=== PATIENT | female | born 1950 | race Caucasian/White ===

== ENCOUNTER 2018-08-11 13:48 | Inpatient (IN) | payer MEDICARE, OTHER ==
[~2018-08-11] VITALS: Ht 165.1 cm; Wt 128.8 kg
[~2018-08-11 13:48] MED LIST: SODIUM BICARBONATE SYR 50 MEQ/50 ML DISP.SYRIN IV ONE
--- NOTE | 2018-08-11 13:50 | NUR ---
JACK RA 39 FROM [facility]ARE [facility],"NOT ACTING RIGHT PER FAMILY FOR 3 DAYS", UNRESPONSIVE TO STIMULUS, HOOKED TO MONITOR, TO ER BED 1, AWAITING MD CHAVEZ
--- NOTE | 2018-08-11 14:10 | NUR ---
DR LUA AT BEDSIDE FOR EVAL.
[2018-08-11] MEDS ORDERED: ACETAMINOPHEN 650 MG/SUPP.RECT RC ONE ×2 (14:16→14:30)
--- NOTE | 2018-08-11 14:24 | NUR ---
PT TO RADIOLOGY FOR HEAD CT SCAN VIA [facility].
[2018-08-11 14:29] LABS: BASOPHILS % (AUTO) 0.1 % (0.0-2.0); EOSINOPHILS % (AUTO) 0.4 % (0.0-6.0); HEMATOCRIT 38 % (33-45); HEMOGLOBIN 12.4 g/dL (11.5-14.8); LYMPHOCYTES # (AUTO) 1.7 /CMM (0.8-4.8); LYMPHOCYTES % (AUTO) 8.5 % (20.0-44.0); MEAN CORPUSCULAR HGB CONC 33 g/dl (31.0-36.0); MEAN CORPUSCULAR VOLUME 97 fL (82-100); MONOCYTES # (AUTO) 3.6 /CMM (0.1-1.30); MONOCYTES % (AUTO) 17.9 % (2.0-12.0); NEUTROPHILS # (AUTO) 14.8 /CMM (1.8-8.9); NEUTROPHILS % (AUTO) 73.1 % (43.0-81.0); PLATELET COUNT (AUTO) 210 /CMM (150-450); RED BLOOD CELL COUNT(AUTO) 3.91 MIL/uL (4.0-5.2); WHITE BLOOD COUNT (AUTO) 20.2 K/uL (4.3-11.0)
[2018-08-11] MEDS ORDERED: ACETAMINOPHEN ES 500 MG TABLET PO ONE (14:30)
[2018-08-11] MEDS ORDERED: IV NS 0.9% 1,000 ML BAG IV ONE ×2 (14:30→15:00)
[2018-08-11 14:41] LABS: BILIRUBIN,URINE Negative (NEGATIVE); BLOOD, URINE Negative Ery/uL (NEGATIVE); COLOR,URINE Yellow (YELLOW); KETONES,URINE Negative (NEGATIVE); LEUKOCYTE ESTERASE ,URINE Negative (NEGATIVE); NITRITE, URINE Negative (NEGATIVE); PROTEIN,URINE Negative (NEGATIVE); UGLUCOSE Negative (NEGATIVE); UROBILINOGEN,URINE 0.2 EU/dL (0.2)
[2018-08-11 14:42] LABS: APPEARANCE,URINE CLEAR (CLEAR)
[2018-08-11 14:47] LABS: CALCIUM, SERUM 7.9 mg/dL (8.5-10.1); CREATININE 1.8 mg/dL (0.6-1.3); POTASSIUM 5.1 mmol/L (3.5-5.1)
[2018-08-11 14:51] LABS: ALBUMIN 2.8 g/dL (3.4-5.0); BILIRUBIN,DIRECT 0.6 mg/dL (0.0-0.2); BILIRUBIN,TOTAL 1.5 mg/dL (0.2-1.0); TOTAL PROTEIN, SERUM 5.9 g/dL (6.4-8.2)
[2018-08-11] MEDS ORDERED: PIPERACILLIN /TAZOBACTAM 3.375 G in IV D5W 50 ML IV ONE (15:00)
[2018-08-11 15:15] LABS: BAND % (MANUAL) 9 % (0.0-5.0); LYMPHOCYTES % (MANUAL) 10 % (16-48); METAMYELOCYTES % 1 % (0-0); MONOCYTES % (MANUAL) 19 % (0-11.0); NEUTROPHILS % (MANUAL) 61 (42-76)
--- NOTE | 2018-08-11 15:21 | NUR ---
REQUESTED A GREGORY BED
--- NOTE | 2018-08-11 15:37 | NUR ---
PT IS ASSIGNED TO [facility] RM#: [id number], DX: SEPSIS AND ENCEPHALOPATHY, AND ACCEPTING MD: MICH
[2018-08-11] MEDS ORDERED: TEMA15CA PO (15:42)
[2018-08-11] MEDS ORDERED: ASCO500T9 PO (15:42)
[2018-08-11] MEDS ORDERED: ZINC220C8 PO (15:42)
[2018-08-11] MEDS ORDERED: METO2.5T7 PO (15:42)
[2018-08-11] MEDS ORDERED: NA P133E RC (15:42)
[2018-08-11] MEDS ORDERED: L. A1TAB10 PO (15:42)
[2018-08-11] MEDS ORDERED: MULT-213 PO (15:42)
[2018-08-11] MEDS ORDERED: HYDR26CR RC (15:42)
[2018-08-11] MEDS ORDERED: DEXL60CA3 PO (15:42)
[2018-08-11] MEDS ORDERED: CRAN450T3 PO (15:42)
[2018-08-11] MEDS ORDERED: BISA10SU61 RC (15:42)
[2018-08-11] MEDS ORDERED: MAGN400O6 PO (15:42)
[2018-08-11] MEDS ORDERED: POTA20TA83 PO (15:42)
[2018-08-11] MEDS ORDERED: INSU100V27 SQ (15:42)
[2018-08-11] MEDS ORDERED: IPRA3AMP23 IH (15:42)
[2018-08-11] MEDS ORDERED: DOCU-141 PO (15:42)
[2018-08-11] MEDS ORDERED: CEPH500T PO (15:42)
[2018-08-11] MEDS ORDERED: EPOE1VIA6 SQ (15:42)
[2018-08-11] MEDS ORDERED: HYDR-4384 PO (15:42)
[2018-08-11] MEDS ORDERED: ESCI10TA PO (15:42)
[2018-08-11] MEDS ORDERED: ENOX40DI SQ (15:42)
[2018-08-11] MEDS ORDERED: INSU100V7 SQ (15:42)
[2018-08-11] MEDS ORDERED: [UNRECOGNIZED DRUG - CODE] PO (15:42)
[2018-08-11] MEDS ORDERED: HYDR25SU33 RC (15:42)
[2018-08-11] MEDS ORDERED: ATOR20TA PO (15:42)
[2018-08-11] MEDS ORDERED: IV NS 0.9% 500 ML BAG IV ONE (16:00)
--- NOTE | 2018-08-11 16:00 | NUR ---
REPORT GIVEN. PT AWAITING TRANSFER TO FLOOR.
[2018-08-11] MEDS ORDERED: MORPHINE SULFATE INJ 4 MG/ML DISP.SYRIN ONE (16:43)
[2018-08-11] MEDS: MORPHINE SULFATE INJ 4 MG/ML DISP.SYRIN IV PRN (16:47)
[2018-08-11 17:00] VITALS: BP 127/46
--- NOTE | 2018-08-11 17:00 | NUR ---
GREGORY RN INITIAL NOTE RECEIVED PT IN BED FROM ER. PT ON TELE MONITOR SR WITH PVC'S. IV RIGHT HAND #18. PT IS ASLEEP, AROUSABLE TO LIGHT PAIN. DAUGHTER AT BEDSIDE. HAS EPISODES OF DIARRHEA. FIRM ABD. SAFETY PRECAUTIONS IN PLACE. WILL CONT TO MONITOR.
--- NOTE | 2018-08-11 19:15 | NUR ---
GREGORY RN NOTE PT ENDORSED TO PM NURSE FOR BERNABE. NOTIFIED MD FOR ADMITTING ORDERS. PATIENT IS RESTING IN BED. NO S/SX OF DISTRESS AT THIS TIME. SAFETY PRECAUTIONS IN PLACE. CALL LIGHT IN REACH. ALL NEEDS ATTENDED TO.
[2018-08-11 20:00] VITALS: BP 107/52
[2018-08-11] MEDS ORDERED: ONDANSETRON HCL/PF 4 MG/2 ML VIAL IVP PRN (20:00)
[2018-08-11] MEDS ORDERED: MAG HYDROX/AL HYDROX/SIMETH 30 ML UDC PO PRN (20:00)
[2018-08-11] MEDS ORDERED: VANCOMYCIN 1 GM in IV NS 0.9% 250 ML IV SCH (20:00)
[2018-08-11] MEDS ORDERED: HYDROCODONE/APAP 5/325MG 1 EACH TABLET PO PRN (20:00)
[2018-08-11] MEDS ORDERED: ENALAPRILAT DIHYD. (2.5MG/ML) 1.25 MG/ML VIAL IV PRN (20:00)
[2018-08-11] MEDS ORDERED: MAGNESIUM HYDROXIDE 30 ML UDC PO PRN (20:00)
[2018-08-11] MEDS ORDERED: ACETAMINOPHEN 325 MG TABLET PO PRN (20:00)
[2018-08-11] MEDS ORDERED: BISACODYL SUPP (10 MG) 10 MG/SUPP.RECT SUPP.RECT RC PRN (20:00)
[2018-08-11] MEDS ORDERED: hydrALAZINE HCL 25 MG TABLET PO PRN (20:00)
[2018-08-11] MEDS ORDERED: Z GUARD REMEDY 2 OZ OINT TP PRN (20:00)
[2018-08-11] MEDS ORDERED: FEE PK DOSING 1 MIN EA MC ONE (20:11)
[2018-08-11] MEDS: IV NS 0.9% 1,000 ML IV PRN (20:28)
[2018-08-11] MEDS: VANCOMYCIN 1 GM in IV D5W 250 ML IV SCH (20:55)
[2018-08-11] MEDS ORDERED: IV NS 0.9% 500 ML IV ONE (22:00)
[2018-08-11] MEDS: PIPERACILLIN /TAZOBACTAM 3.375 G in IV D5W 50 ML IV SCH (22:28)
[2018-08-12] VITALS: BP 103/48
[2018-08-12 04:00] VITALS: BP 98/47
[2018-08-12] MEDS: PIPERACILLIN /TAZOBACTAM 3.375 G in IV D5W 50 ML IV SCH ×4 (04:13→21:43)
[2018-08-12 06:26] LABS: BASOPHILS % (AUTO) 0.1 % (0.0-2.0); EOSINOPHILS % (AUTO) 1.1 % (0.0-6.0); HEMATOCRIT 42 % (33-45); LYMPHOCYTES % (AUTO) 8.6 % (20.0-44.0); MEAN CORPUSCULAR HGB CONC 31 g/dl (31.0-36.0); MEAN CORPUSCULAR VOLUME 100 fL (82-100); MONOCYTES # (AUTO) 3.3 /CMM (0.1-1.30); MONOCYTES % (AUTO) 14.3 % (2.0-12.0); NEUTROPHILS # (AUTO) 17.4 /CMM (1.8-8.9); NEUTROPHILS % (AUTO) 75.9 % (43.0-81.0); PLATELET COUNT (AUTO) 188 /CMM (150-450); RED BLOOD CELL COUNT(AUTO) 4.18 MIL/uL (4.0-5.2)
[2018-08-12 06:34] LABS: CALCIUM, SERUM 7.8 mg/dL (8.5-10.1); CARBON DIOXIDE 24 mmol/L (21-32); CHLORIDE 108 mmol/L (98-107); GLUCOSE 163 mg/dL (74-106); POTASSIUM 5.1 mmol/L (3.5-5.1); SODIUM SERUM 142 mmol/L (136-145); UREA NITROGEN, BLOOD 37 mg/dL (7-18)
[2018-08-12 06:37] LABS: MAGNESIUM 1.7 mg/dL (1.8-2.4); PHOSPHORUS 4.2 mg/dL (2.5-4.9)
[2018-08-12 06:42] LABS: IRON, SERUM 46 ug/dl (50-175); TOTAL IRON BINDING CAPACITY 112 ug/dl (250-450)
[2018-08-12 06:50] LABS: LDL 20 mg/dL (0-99); THYROID STIMULATING HORMONE 4.916 uIU/mL (0.358-3.74); TRIGLYCERIDES 70 mg/dL (30-150)
[2018-08-12 07:18] LABS: CHOLESTEROL < 50 mg/dL (<200); HDL CHOLESTEROL < 10 mg/dL (40-60)
[2018-08-12] MEDS: PANTOPRAZOLE 40 MG TABLET.DR PO SCH ×2 (07:30→08:34)
[2018-08-12 08:00] VITALS: BP 120/60
[2018-08-12] MEDS: ALBUTEROL FS 2.5 MG/3 ML VIAL.NEB NEB SCH ×4 (08:00→19:49)
[2018-08-12] MEDS: LEVOTHYROXINE SODIUM 100 MCG TABLET PO SCH (08:00)
[2018-08-12] MEDS ORDERED: IV NS 0.9% 1,000 ML IV PRN (08:00)
--- NOTE | 2018-08-12 08:18 | NUR ---
RT NOTE PT ASLEEP AT MOMENT. WILL RETURN TO ADMINISTER BREATHING TREATMENT WHEN PT IS AWAKE, NO DISTRESS NOTED AT MOMENT. NO SOB NOTED AT MOMENT.
[2018-08-12] MEDS: ESCITALOPRAM OXALATE (10 MG) 10 MG TABLET PO SCH ×2 (08:34→08:37)
[2018-08-12] MEDS: ASCORBIC ACID 500 MG TABLET PO SCH ×3 (08:34→16:43)
[2018-08-12] MEDS: DOCUSATE SODIUM 100 MG CAPSULE PO SCH ×3 (08:34→16:43)
[2018-08-12] MEDS: Magnesium 1GM/D5W 100ML PREMIX 100 ML IV SCH ×3 (09:30→11:43)
--- NOTE | 2018-08-12 10:17 | NUR ---
RN NOTE 0720:Received patient able to respond to name, but only moans, does note follow commands at this time,. does not want to open eyes. Per previous shift, patient is only Cymraes/Armenian speaking. Will hold PO meds and breakfast for now for lethargic. On 3LPM of O2 via NC, no respiratory distress noted at this time. SR [address] 110's on the monitor. With Preston cath intact, noted with clear lance colored urine drained to BSD. On isolation prec for episodes of 2 loos stools from previous shift. Will continue to monitor. RH g18 intact, IVF infusing as ordered. 0945: S/E by Dr. Miner, made aware, patient is still lethargic, only moans. Made MD aware, held all PO meds. IV 1L NS bolus on going, will do F/U LA at 1200. 1000: S/E by Dr. Estrada, with order to do ABG, made RT aware. 1017: ABG resulted, no new order at this time.
[2018-08-12 10:20] LABS: ABG BASE EXCESS -1.9 mmol/L; ABG OXYGEN SATURATION 93.5 % (92.0-98.5); ABG PCO2 36.3 mmHg (35.0-45.0); ABG PH 7.406 (7.350-7.450); ABG PO2 70.9 mmHg (75.0-100.0); AaDO2 114.8 mmHg; COHb 0.1 % (0.5-1.5); MetHb 0.7 % (0.0-1.5); O2Hb 92.8 % (94.0-97.0); SITE, ABG Right Radial; VENT MODE, BG Nasal Cannula
[2018-08-12 12:00] VITALS: BP 139/50
[2018-08-12] MEDS ORDERED: PHENYLEPHRINE/SHK LV/MO/PET,WH 30 GM TUBE RC PRN (12:00)
--- NOTE | 2018-08-12 13:48 | NUR ---
RN NOTE Lactic acid 4.4 and CDiff positive reported to Dr. Miner, no new order at this time.
[2018-08-12] MEDS: SOD FERRIC GLUC 125 MG in IV NS 0.9% 100 ML IV SCH (14:24)
[2018-08-12] MEDS: VANCOMYCIN 1 GM in IV D5W 250 ML IV SCH (15:10)
[2018-08-12 16:00] VITALS: BP_SYST 122; BP_SYST 134; BP_DIAS 47; BP_DIAS 66
[2018-08-12] MEDS ORDERED: METRONIDAZOLE 500 MG TABLET PO SCH (16:00)
[2018-08-12] MEDS: LACTOBACILLUS RHAMNOSUS GG 1 EACH CAP.SPRINK PO SCH (16:43)
[2018-08-12] MEDS: IV NS 0.9% 1,000 ML IV PRN (17:37)
[2018-08-12] MEDS: METRONIDAZOLE 500MG/ NS 100ML 500 MG in PREMIX 1 EA IV SCH (18:54)
--- NOTE | 2018-08-12 19:00 | NUR ---
RN NOTE RECEIVED PT IN NO ACUTE DISTRESS IN BED. PT IS LETHARGIC AND SLEEPING. PT MOANS WHEN FAMILY CALLS HER NAME BUT DOES NOT OPEN EYES. PT IS ON 2 VIA NC @ 3LPM AND TOLERATING WELL WITH O2 SAT @ 98%. PT NOT SHOWING ANY S/S OF SOB, DIFFICULTY BREATHING OR PAIN AT THIS TIME. PT HAS INCREASE IN EDEMA IN BILATERAL LOWER EXTREMITIES. PT HAS LEFT HAND 18G THAT IS CLEAN DRY INTACT AND PATENT WITH D51/2 NS@ 125ML/HR. BED IN LOW LOCK POSITION WITH RIALS UP X 2. CALL LIGHT WITHIN REACH AND ALL SAFETY MEASURES ENSURED AND CARRIED OUT. WILL CONTINUE TO MONITOR PT.
[2018-08-12 20:00] VITALS: BP 149/61
[2018-08-12] MEDS: ENOXAPARIN SODIUM 40 MG/0.4 ML DISP.SYRIN SQ SCH (21:44)
[2018-08-12] MEDS ORDERED: ATORVASTATIN 10 MG TABLET PO SCH (22:00)
[2018-08-12] MEDS ORDERED: HYDROMORPHONE INJ 0.5 MG/0.5 ML SYRINGE IV PRN (23:00)
[2018-08-12] MEDS ORDERED: HYDROMORPHONE 1 MG/1 ML DISP.SYRIN ONE (23:40)
[2018-08-13] VITALS (7 sets, daily range): BP systolic 103–122; BP diastolic 36–74
--- NOTE | 2018-08-13 00:01 | NUR ---
UNABLE TO GIVE ANY PO MEDICATION BECAUSE PT IS LETHARGIC AND SLEEPY. HIGH RISK FOR ASPIRATION. WILL CONTINUE TO MONITOR.
[2018-08-13] MEDS: METRONIDAZOLE 500MG/ NS 100ML 500 MG in PREMIX 1 EA IV SCH ×3 (02:20→17:01)
[2018-08-13] MEDS: IV NS 0.9% 1,000 ML IV PRN ×2 (02:20→14:55)
[2018-08-13] MEDS: PIPERACILLIN /TAZOBACTAM 3.375 G in IV D5W 50 ML IV SCH ×2 (05:02→10:08)
[2018-08-13] MEDS: VANCOMYCIN HCL 125 MG/2.5 ML ORAL.SUSP PO SCH ×4 (05:02→17:11)
[2018-08-13 06:23] LABS: BASOPHILS # (AUTO) 0.1 /CMM (0.0-0.2); BASOPHILS % (AUTO) 0.2 % (0.0-2.0); EOSINOPHILS % (AUTO) 0.5 % (0.0-6.0); HEMATOCRIT 46 % (33-45); HEMOGLOBIN 14.1 g/dL (11.5-14.8); LYMPHOCYTES # (AUTO) 3.8 /CMM (0.8-4.8); LYMPHOCYTES % (AUTO) 12.2 % (20.0-44.0); MEAN CORPUSCULAR HGB CONC 31 g/dl (31.0-36.0); MEAN CORPUSCULAR VOLUME 101 fL (82-100); MONOCYTES # (AUTO) 3.8 /CMM (0.1-1.30); MONOCYTES % (AUTO) 12.3 % (2.0-12.0); NEUTROPHILS # (AUTO) 23.2 /CMM (1.8-8.9); NEUTROPHILS % (AUTO) 74.8 % (43.0-81.0); PLATELET COUNT (AUTO) 235 /CMM (150-450); RED BLOOD CELL COUNT(AUTO) 4.53 MIL/uL (4.0-5.2)
[2018-08-13 06:36] LABS: WHITE BLOOD COUNT (AUTO) 31.1 K/uL (4.3-11.0)
[2018-08-13 06:43] LABS: CALCIUM, SERUM 7.6 mg/dL (8.5-10.1); CREATININE 2.6 mg/dL (0.6-1.3); MAGNESIUM 2.1 mg/dL (1.8-2.4); PHOSPHORUS 5.2 mg/dL (2.5-4.9); POTASSIUM 5.2 mmol/L (3.5-5.1)
[2018-08-13 06:55] LABS: T4 (THYROXINE) 2.4 ug/dL (4.7-13.3)
[2018-08-13] MEDS: PANTOPRAZOLE 40 MG TABLET.DR PO SCH (07:30)
[2018-08-13] MEDS: LEVOTHYROXINE SODIUM 100 MCG TABLET PO SCH (07:30)
[2018-08-13] MEDS: ALBUTEROL FS 2.5 MG/3 ML VIAL.NEB NEB SCH ×4 (07:40→19:57)
--- NOTE | 2018-08-13 07:48 | NUR ---
RN NOTE PT REMAINS IN NO ACUTE DISTRESS IN BED. PT DID NOT HAVE ANY SIGNIFICANT CHANGE IN CONDITION DURING SHIFT. ALL NEEDS MET, ALL ORDERS CARRIED OUT. WILL CONTINUE ENDORSE CARE TO AM RN FOR CONTINUITY OF CARE.
[2018-08-13] MEDS: ESCITALOPRAM OXALATE (10 MG) 10 MG TABLET PO SCH (08:11)
[2018-08-13] MEDS: LACTOBACILLUS RHAMNOSUS GG 1 EACH CAP.SPRINK PO SCH ×2 (08:11→16:19)
[2018-08-13] MEDS: ASCORBIC ACID 500 MG TABLET PO SCH ×2 (08:11→16:19)
[2018-08-13] MEDS: DOCUSATE SODIUM 100 MG CAPSULE PO SCH ×2 (08:11→16:19)
--- NOTE | 2018-08-13 08:34 | NUR ---
WOUND CARE CONSULT WOUND CARE RECEIVED CONSULT FOR GROIN RASH. WOUND CARE WILL DEFER CONSULT AND TREATMENT PLAN TO PLASTIC SURGICAL TEAM WHO ARE CURRENTLY FOLLOWING. PATIENT WITH MICHAEL AT 11, ALL PRESSURE ULCER PREVENTION MEASURES ARE NOTED TO BE IN PLACE. WILL SEE PRN.
--- NOTE | 2018-08-13 09:00 | NUR ---
RN NOTES 0715 RECEIVED PT LETHARGIC. MOANS TO VERBAL AND PAIN STIMULI. UNABLE TO OPEN EYES AND FOLLOW COMMANDS. ON 02 AT 3LPM VIA NC. NO SOB NOTED. HOB ELEVATED. NO SIGNS OF PAIN NOTED. IV LINE IN PLACE. IVF INFUSING. FC IN PLACE. NO HEMATURIA NOTED. BLE ELEVATED. WILL MONITOR. 0900 UNABLE TO GIVE MEDS DUE TO LOC. MD NOTIFIED. WILL CLOSELY MONITOR.
[2018-08-13 09:05] LABS: BAND % (MANUAL) 4 % (0.0-5.0); LYMPHOCYTES % (MANUAL) 6 % (16-48); MONOCYTES % (MANUAL) 12 % (0-11.0); NEUTROPHILS % (MANUAL) 77 (42-76)
[2018-08-13 09:06] LABS: EOSINOPHILS % (MANUAL) 1 % (0-4)
[2018-08-13] MEDS: NYSTATIN TOP POWDER 15 GM BOTTLE TP SCH ×2 (09:59→21:45)
--- NOTE | 2018-08-13 15:00 | NUR ---
RN NOTES CALLED DR SIMENTAL REGARDING PT. NOTIFIED OF LAB VALUES: WBC 31, POTASSIUM 5.2, BUN 44, CREA 2.6. PT ON IV ATBS. NO ASE NOTED. AFEBRILE. PT POSITIVE FOR CDIFF, STILL HAVING DIARRHEA. ALSO MENTIONED PT'S LOC. PT LETHARGIC, MOANS ON VERBAL AND PAIN STIMULI. UNABLE TO FOLLOW COMMANDS. UNABLE TO GIVE PO MEDS. MD ORDERED ID CONSULT. STATED NO NEED ORDER FOR POTASSIUM 5.2, JUST MONITOR. Addendum: 08/13/18 at 1539 by ODILIA NICOLE RN MD BEE AWARE OF LOW OUTPUT, 60ML FROM 0700. DR HERZOG AWARE.
[2018-08-13] MEDS: SOD FERRIC GLUC 125 MG in IV NS 0.9% 100 ML IV SCH (15:03)
[2018-08-13] MEDS ORDERED: PIPERACILLIN /TAZOBACTAM 2.25 G in IV D5W 50 ML IV SCH (18:00)
[2018-08-13] MEDS ORDERED: PIPERACILLIN /TAZOBACTAM 2.25 G in IV NS 0.9% 50 ML IV SCH (18:00)
--- NOTE | 2018-08-13 18:37 | NUR ---
RN CLOSING NOTES NO SIGNIFICANT CHANGE NOTED. NO SOB NOTED. NO SIGNS OF PAIN NOTED. KEPT CLEAN AND DRY. REPOSITIONED Q2. BLE ELEVATED. ALL NEEDS ANTICIPATED AND MET. CALL LIGHT WITHIN REACH. WILL MONITOR.
--- NOTE | 2018-08-13 20:00 | NUR ---
GREGORY RN NOTES RECEIVED BEDSIDE REPORT FROM AM NURSE. PT IS IN BED, LETHARGIC AND SLEEPING, ON CONTAC ISOLATION. PT MOANS WHEN FAMILY CALLS HER NAME BUT DOES NOT OPEN EYES. PT IS ON 3L O2 VIA NC AND TOLERATING WELL WITH O2 SAT @ 98%. PT NOT SHOWING ANY S/S OF SOB, DIFFICULTY BREATHING. PATIENT HAS INCREASED +4 EDEMA IN BILATERAL LOWER EXTREMITIES. PT HAS LEFT HAND 18G IV LINE THAT IS CLEAN DRY INTACT AND PATENT WITH 0.9% NS@ 125ML/HR. BED IN LOW LOCK POSITION WITH RIALS UP X 2. CALL LIGHT WITHIN REACH AND ALL SAFETY MEASURES ENSURED AND CARRIED OUT. WILL CONTINUE TO MONITOR PT.
[2018-08-13] MEDS: ENOXAPARIN SODIUM 40 MG/0.4 ML DISP.SYRIN SQ SCH (21:10)
[2018-08-13] MEDS: MORPHINE SULFATE INJ 4 MG/ML DISP.SYRIN IV PRN (21:11)
[2018-08-14] VITALS (8 sets, daily range): BP systolic 0–148; BP diastolic 0–70
[2018-08-14] MEDS: IV NS 0.9% 1,000 ML IV PRN (00:01)
[2018-08-14] MEDS: VANCOMYCIN HCL 125 MG/2.5 ML ORAL.SUSP PO SCH ×2 (00:01)
--- NOTE | 2018-08-14 00:25 | NUR ---
GREGORY RN NOTES PATIENT IS HAVING HARD TIME WITH BREEDING AND USING ACCESSORY MUSCLES TO BREATH, COULDN'T GET GOOD SPO2 READING AND PATIENT IS PALE. FAMILY MEMBERS AT THE BEDSIDE. SHELLY LE NOTIFIED AND STAT ABG AND CHEST XR HAS BEEN ORDERED. SHELLY GLYNN AT THE BEDSIDE AND BY MD ORDER AND FAMILY REQUEST NG TUBE HAS BEEN PLACED @60CM. FOUNTAIN VENDING MECHANIC CONNECTED THE NG TUBE TO SUCTION AND SMALL AMOUNT OF GREENISH FLUID WAS SUCTIONED. AFTER GETTING ABG RESULTS PER SHELLY GLYNN'S ORDER PATIENT WILL BE MOVED TO ICU ROOM 255-1.
--- NOTE | 2018-08-14 01:05 | NUR ---
RN NOTES PATIENT HAS BEEN TRANSFERRED TO ICU AND PATIENT'S REPORT IS GIVEN TO CLOTH BALER SAVANNAH.
--- NOTE | 2018-08-14 01:10 | NUR ---
RT NOTE PT CALLED FOR STAT ABG, PT SHOWED SIGNS OF ACCESSORY MUSCLE USAGE AND SOB. ABG RESULTS SHOWED CRITICAL VALUES. PT TRANSPORTED TO ICU 255 AND ORALLY INTUBATED PER DR OSCAR REQUEST VIA ETT SZ 7.5 SECURED @ 23 AT THE LIP. CO2 COLORMETRIC SHOWED COLOR CHANGE AND B/S CLEAR BILATERALLY. PT PLACED ON [facility] VENT ON AC 20 500 100% +5. STAT ABG AND XRAY RESULTS PENDING. ALARMS ARE SET AND AUDIBLE. VENT PLUGGED INTO RED OUTLET. AMBU BAG BEDSIDE. WILL CONTINUE TO MONITOR CLOSELY. Addendum: 08/14/18 at 0232 by ARGENIS DANIELS RT Amended: Links added.
--- NOTE | 2018-08-14 01:20 | NUR ---
RT NOTE SHORTLY AFTER INTUBATION, CODE BLUE INITIATED ON PT, RT BEDSIDE ASSISTING WITH CPR.
[2018-08-14] MEDS ORDERED: NOREPINEPHRINE 4 MG/4 ML AMPUL IV ONE (01:49)
[2018-08-14] MEDS ORDERED: NOREPINEPHRINE 16 MG in IV D5W 500 ML IV PRN (02:00)
[2018-08-14] MEDS ORDERED: PHENYLEPHRINE 80 MG in IV D5W 250 ML IV PRN (02:00)
[2018-08-14] MEDS ORDERED: ETOMIDATE 2 MG/ML VIAL IV ONE (02:32)
[2018-08-14] MEDS ORDERED: CALCIUM CHLORIDE 1,000 MG/10 ML DISP.SYRIN IV ONE (02:32)
[2018-08-14] MEDS ORDERED: ROCURONIUM BROMIDE 50 MG/5 ML IV ONE (02:32)
[2018-08-14] MEDS ORDERED: EPINEPHRINE (1:10,000) SYRINGE 1 MG/10 ML DISP.SYRIN IVP ONE (02:32)
[2018-08-14] MEDS ORDERED: SODIUM BICARBONATE SYR 50 MEQ/50 ML DISP.SYRIN IV ONE (02:32)
[2018-08-14] MEDS ORDERED: DEXTROSE 50%-WATER 50 ML DISP.SYRIN IV ONE (02:32)
--- NOTE | 2018-08-14 02:50 | NUR ---
FARMWORKER BULBS PT WAS TRANSFERRED FROM ROOM 105 TO ICU WITH DIAGNOSIS RESPIRATORY FAILURE, ASPIRATION PNA, SEPSIS. STAT INTUBATION WAS DONE AND PT WAS PLACED ON VENTILATOR AC MODE. PT WAS NONRESPONSIVE TO ANY STIMULI, PUPILS FIXED & DISTENDED. F/C DRAINS NO URINE. NGT CONNECTED TO LIS DRAINS GREEN COLOR BILE. PT WAS CODED TWICE AT 01.31 & 02.02 AM. /SEE CODE BLUE PROTOCOL./ FINALLY FAMILY DECIDED TO PUT PT ON DNR CODE. & PT WENT TO CARDIOPULMONARY ARREST AT 02.33 A.M. & WAS PRONOUNCED BY ED RITA, ICU LOW VISION THERAPIST. RECORD OF WAS COMPLETED, BODY CARE DONE AND MORTUARY WAS CALLED.
== END 2018-08-14 02:33 | disposition expired | DRG 871 ==
LOC: ER 13:51 → TELE-TD 15:41 → MEDSG1 08-13 10:00 → ICU 08-14 00:54
PROVIDERS: ADMIT Internal Medicine; ATTEND Internal Medicine
PROC: 5A2204Z Restoration of Cardiac Rhythm, Single (ICD-10-PCS; principal; 2018-08-14)
DX: A41.9 Sepsis, unspecified organism (principal); J18.9 Pneumonia, unspecified organism; N17.0 Acute kidney failure with tubular necrosis; R65.21 Severe sepsis with septic shock; G93.41 Metabolic encephalopathy; J90 Pleural effusion, not elsewhere classified; E87.2 Acidosis; N39.0 Urinary tract infection, site not specified; J81.1 Chronic pulmonary edema; A04.72 Enterocolitis due to Clostridium difficile, not specified as recurrent; K21.9 Gastro-esophageal reflux disease without esophagitis; Z96.651 Presence of right artificial knee joint; Z82.49 Family history of ischemic heart disease and other diseases of the circulatory system; Z79.2 Long term (current) use of antibiotics; F32.9 Major depressive disorder, single episode, unspecified; Z79.4 Long term (current) use of insulin; Z79.899 Other long term (current) drug therapy; G89.29 Other chronic pain; M19.90 Unspecified osteoarthritis, unspecified site; I12.9 Hypertensive chronic kidney disease with stage 1 through stage 4 chronic kidney disease, or unspecified chronic kidney disease; N18.9 Chronic kidney disease, unspecified; E78.5 Hyperlipidemia, unspecified; E83.42 Hypomagnesemia; L30.4 Erythema intertrigo; I46.9 Cardiac arrest, cause unspecified; M71.20 Synovial cyst of popliteal space [Baker], unspecified knee; E11.22 Type 2 diabetes mellitus with diabetic chronic kidney disease; E66.01 Morbid (severe) obesity due to excess calories; D50.9 Iron deficiency anemia, unspecified; D63.8 Anemia in other chronic diseases classified elsewhere; E03.9 Hypothyroidism, unspecified; D69.1 Qualitative platelet defects; Z66 Do not resuscitate
CPT/HCPCS: 36415; 36600; 70450-TC; 71045-TC; 76770-TC; 80048-TC; 80061-TC; 80076-TC; 81000-TC; 82533; 82803-TC; 82962-TC; 83540-TC; 83605-TC; 83735-TC; 84100-TC; 84436-TC; 84443-TC; 84481; 84484-TC; 85025-TC; 85730-TC; 87040-TC; 87081-TC; 87086-TC; 87186-TC; 92950-TC; 93307-TC; 93970-TC; A4216; A4606; G0378; J0171; J1170; J1650; J2270; J2543; J2916; J3370; J3475; J3490; J7030; J7040; J7050; J7060; Z7610